=== PATIENT | female | born 1970 | race Caucasian/White ===

== ENCOUNTER 2021-01-07 15:09 | Outpatient (REF) | payer OTHER, SELFPAY ==
[2021-01-07 19:42] LABS: Anion Gap 7.7 mmol/L (3-11); BUN 13 mg/dL (7-18); CO2 28.3 mmol/L (21.0-32.0); CREATININE 0.7 mg/dL (0.55-1.02); Calcium 9.2 mg/dL (8.5-10.1); Chloride 105 mmol/L (98-107); Glucose 83 mg/dL (74-106); Potassium 3.9 mmol/L (3.5-5.1); Sodium 141 mmol/L (136-145)
== END 2021-01-07 15:10 | disposition home or self-care (01) ==
LOC: NCHCN 15:09
PROVIDERS: PCP Physician Assistant Medical; Visit Provider Physician Assistant
DX: I10 Essential (primary) hypertension (principal)
CPT/HCPCS: 80048

== ENCOUNTER 2023-05-26 15:49 | Outpatient (REF) | payer OTHER, SELFPAY ==
[2023-05-26 20:16] LABS: ALT 32 U/L (14-59); AST 24 U/L (15-37); Albumin 3.7 g/dL (3.4-5.0); Alkaline Phosphatase 117 U/L (46-116); Anion Gap 11.2 mmol/L (3-11); BUN 16 mg/dL (7-18); Bilirubin, Total 0.4 mg/dL (0.2-1.0); CO2 24.8 mmol/L (21.0-32.0); Chloride 107 mmol/L (98-107); Estimated GFR 66.95 (mL/min/1.73m2); Glucose 121 mg/dL (74-106); Potassium 3.8 mmol/L (3.5-5.1); Sodium 143 mmol/L (136-145); Total Protein 7.4 g/dL (6.4-8.2)
== END 2023-05-26 15:50 | disposition home or self-care (01) ==
LOC: NCHCN 15:49
PROVIDERS: PCP Physician Assistant Medical; Visit Provider Physician Assistant
DX: I25.10 Atherosclerotic heart disease of native coronary artery without angina pectoris (principal)
CPT/HCPCS: 80053

== ENCOUNTER 2024-02-11 12:23 | Outpatient (REF) | payer SELFPAY ==
--- NOTE | 2024-02-11 10:00 | SKI_PTH ---
PATIENT: Merlyn Lopez LOC: [facility] U#:[id number] AGE/SX: 53/F ROOM: RE02/11/[address]: Caroline Warren : 1970 BED: DIS: 02/11/2024 SPEC #: [id number] RECD: 02/14/24 12:40 STATUS: MARIVEL REQ #: [id number] BLAYNE: 02/11/24 10:[address]: Caroline Warren DEPT: Surgical Specimen RECD BY: Surekha Gastelum ENTERED: 02/14/24 12:40 SP TYPE: HUMAIRA RECIO DR: Harsh Osman V Tissues: 1 - SKIN BIOPSY(SHAVE/PUNCH) Procedures: IMMUNOPEROXIDASE STAIN SKIN LEVEL 4 Comments: [id number]
== END 2024-02-11 12:24 | disposition home or self-care (01) ==
LOC: NCHCN 12:23
PROVIDERS: PCP Physician Assistant Medical; Visit Provider Physician Assistant
DX: L82.1 Other seborrheic keratosis (principal)
CPT/HCPCS: 88305; 88361

== ENCOUNTER 2024-06-20 15:57 | Outpatient (REF) | payer MEDICARE, SELFPAY ==
[2024-06-20 20:02] LABS: Abs Immature Grans 0.02 10^3/uL (0.0-0.06); Absolute Basophil Count 0.09 10^3/uL (0.0-0.2); Absolute Eosinophil Count 0.22 10^3/uL (0.0-0.7); Absolute Monocyte Count 0.58 10^3/uL (0.1-0.8); Basophils % 1.1 %; Eosinophils % 2.6 %; HCT 45.3 % (36.0-46.0); HGB 14.8 g/dL (11.2-15.7); Immature Grans % 0.2 %; Lymphocytes % 38.8 %; MCH 28.7 pg (27.0-33.0); MCHC 32.7 % (32.0-36.0); MCV 88 fL (80-95); MPV 10.1 fL (8.0-11.0); Monocytes % 6.8 %; Neutrophils % 50.5 %; Platelet Count 380 10^3/uL (130-400); RBC 5.15 10^6/uL (3.93-5.22); WBC 8.51 10^3/uL (4.4-10.8)
[2024-06-20 20:35] LABS: ALT 46 U/L (14-59); AST 30 U/L (15-37); Albumin 4.2 g/dL (3.4-5.0); Alkaline Phosphatase 134 U/L (46-116); BUN 16 mg/dL (7-18); Bilirubin, Total 0.6 mg/dL (0.2-1.0); CREATININE 0.9 mg/dL (0.55-1.02); Calcium 9.8 mg/dL (8.5-10.1); Chloride 105 mmol/L (98-107); Glucose 92 mg/dL (74-106); Magnesium 2.3 mg/dL (1.8-2.4); Potassium 3.6 mmol/L (3.5-5.1); Sodium 139 mmol/L (136-145); TSH (W/Ref FT4) 2.86 uIU/mL (0.36-3.74); Troponin I 4 ng/L (<or=51)
[2024-06-22 10:05] LABS: HIV-1/2 Ag & Ab Screen Negative (Negative)
== END 2024-06-20 15:58 | disposition home or self-care (01) ==
LOC: NCHCN 15:57
PROVIDERS: PCP Physician Assistant Medical; Visit Provider Physician Assistant
DX: Z11.4 Encounter for screening for human immunodeficiency virus [HIV] (principal); R07.9 Chest pain, unspecified
CPT/HCPCS: 80053; 87389; 83735; 84443; 84484; 85025